=== PATIENT | female | born 1945 | race Caucasian/White ===

== ENCOUNTER → 2016-10-14 | Outpatient (CLI) | payer MEDICARE, BC ==
--- NOTE | 2016-10-16 07:58 | MM ---
Reason for exam: screening (asymptomatic). Last mammogram was performed 1 year and 1 month ago. History: Patient is postmenopausal. Stereotactic core biopsy of the left breast, March 19, 1998. Benign stereotactic core biopsy of the left breast, March 19, 1998. Core biopsy of the left breast. Benign excisional biopsy of the right breast. Took estrogen for 27 years 7 months beginning at age 36. Physical Findings: A clinical breast exam by your physician is recommended on an annual basis and results should be correlated with mammographic findings. MG 3D Screening Mammo W/Cad Bilateral CC and MLO view(s) were taken. Prior study comparison: September 28, 2015, bilateral MG screening mammo w CAD. February 09, 2014, bilateral MG screening mammo w CAD. January 18, 2013, CAD bilateral diagnostic mammogram. There are scattered fibroglandular densities. Previous mammotome biopsy in the left breast. ASSESSMENT: Benign, BI-RAD 2 RECOMMENDATION: Routine screening mammogram of both breasts in 1 year.
== END | disposition home or self-care (01) ==
LOC: RADMAMWWP 08:27
PROVIDERS: ATTEND Family Medicine
DX: Z12.31 Encounter for screening mammogram for malignant neoplasm of breast (principal)
CPT/HCPCS: 77063; G0202

== ENCOUNTER → 2017-10-19 | Outpatient (CLI) | payer MEDICARE, BC ==
--- NOTE | 2017-10-19 15:25 | BD ---
EXAMINATION TYPE: Axial Bone Density DATE OF EXAM: 10/19/2017 CLINICAL HISTORY: 72-year-old female disorder bone density and structure, postmenopausal screening Height: 64.5 Weight: 160 FRAX RISK QUESTIONS: Alcohol (3 or more units per day): no Family History (Parent hip fracture): no Glucocorticoids (More than 3mos): no (Ex: prednisone, prednisolone, methylprednisolone, dexamethasone, and hydrocortisone). History of Fracture in Adulthood: no Secondary Osteoporosis: 1. Type 1 Diabetes: no 2. Hyperthyroidism: no 3. Menopause before 45: hysterectomy age 36 4. Malnutrition: no 5. Chronic liver disease: no Rheumatoid Arthritis: no Current Tobacco Use: no RISK FACTORS HISTORY OF: Family History of Osteoporosis: no Active: yes Diet low in dairy products/other sources of calcium: at least one serving a day, or more Postmenopausal woman: no Take estrogen and/or progesterone medications: not now How long: age [age] Lost more than 2 inches in height since high school: no, but states height may have been about 66 inc hes at one time Frequent falls: no Poor Health: no Hyperparathyroidism: no Adrenal Insufficiency: no MEDICATIONS: Prednisone or other steroids: no Thyroid Medications: yes Which medication: generic synthroid How Long: at least 30 years Osteoporosis Medications: no Additional Medications: calcium & Vitamin D , cholesterol meds Additional History: EXAM MEASUREMENTS: Bone mineral densitometry was performed using the [employer] System. Bone mineral density as measured about the Lumbar spine is: ----- L1-L4(G/cm2): 1.049 T Score Values are as follows: ----- L2: -1.6 ----- L3: -0.8 ----- L4: -0.7 ----- L1-L4: -1.1 Bone mineral density not previously done at this facility; previously done at physician office Bone mineral density about the R hip (g/cm2): 0.838 Bone mineral density about the L hip (g/cm2): 0.874 T Score values are as follows: -----R Neck: -1.4 -----L Neck: -1.2 -----R Total: -1.3 -----L Total: -1.1 Bone mineral density not previously done at this facility; previously done at physician office IMPRESSION: Osteopenia (T Score between -2.5 and -1). There is slightly increased risk of fracture and the patient may be considered for treatment. Re-Screen 2-5 years. NOTE: T-SCORE=SD OF THE YOUNG ADULT MEAN.
== END | disposition home or self-care (01) ==
LOC: RADBDWWP 07:56
PROVIDERS: ATTEND Family Medicine
DX: M85.80 Other specified disorders of bone density and structure, unspecified site (principal)
CPT/HCPCS: 77080

== ENCOUNTER → 2017-11-11 | Outpatient (CLI) | payer MEDICARE, BC ==
--- NOTE | 2017-11-12 07:58 | MM ---
Reason for exam: clinical finding. Last mammogram was performed 1 year and 1 month ago. History: Patient is postmenopausal. Stereotactic core biopsy of the left breast, March 19, 1998. Benign stereotactic core biopsy of the left breast, March 19, 1998. Core biopsy of the left breast. Benign excisional biopsy of the right breast. Took estrogen for 27 years 7 months beginning at age 36. Indicated problem(s): pain in the left breast. Physical Findings: Nurse did not find any significant physical abnormalities on exam. MG 3D Diag Mammo W/Cad [facility] Bilateral CC and MLO view(s) were taken. Prior study comparison: October 14, 2016, bilateral MG 3d screening mammo w/cad. September 28, 2015, bilateral MG screening mammo w CAD. February 09, 2014, bilateral MG screening mammo w CAD. There are scattered fibroglandular densities. Previous mammotome biopsy in the left breast. No significant new findings when compared with previous films. These results were verbally communicated with the patient and result sheet given to the patient on 11/11/17. ASSESSMENT: Negative, BI-RAD 1 RECOMMENDATION: Routine screening mammogram of both breasts in 1 year. Manage patient on a clinical basis. (left breast pain)
== END | disposition home or self-care (01) ==
LOC: RADMAMWWP 14:10
PROVIDERS: ATTEND Family Medicine
DX: N64.4 Mastodynia (principal)
CPT/HCPCS: 77066; G0279; 77062

== ENCOUNTER → 2018-11-18 | Outpatient (CLI) | payer MEDICARE ==
--- NOTE | 2018-11-19 10:53 | MM ---
Reason for exam: screening (asymptomatic). Last mammogram was performed 1 year ago. History: Patient is postmenopausal. Stereotactic core biopsy of the left breast, March 19, 1998. Benign stereotactic core biopsy of the left breast, March 19, 1998. Core biopsy of the left breast. Benign excisional biopsy of the right breast. Took estrogen for 27 years 7 months beginning at age 36. Physical Findings: A clinical breast exam by your physician is recommended on an annual basis and results should be correlated with mammographic findings. MG 3D Screening Mammo W/Cad Bilateral CC and MLO view(s) were taken. Prior study comparison: November 11, 2017, bilateral MG 3d diag mammo w/cad [facility]. October 14, 2016, bilateral MG 3d screening mammo w/cad. There are scattered fibroglandular densities. No significant changes when compared with prior studies. ASSESSMENT: Benign, BI-RAD 2 RECOMMENDATION: Routine screening mammogram of both breasts in 1 year.
== END | disposition home or self-care (01) ==
LOC: RADMAMWWP 14:09
PROVIDERS: ATTEND Family Medicine
DX: Z12.31 Encounter for screening mammogram for malignant neoplasm of breast (principal)
CPT/HCPCS: 77063; 77067

== ENCOUNTER → 2020-10-05 | Outpatient (CLI) | payer MEDICARE ==
--- NOTE | 2020-10-08 08:15 | MM ---
Reason for exam: screening (asymptomatic). Last mammogram was performed 1 year and 11 months ago. History: Patient is postmenopausal. Stereotactic core biopsy of the left breast, March 19, 1998. Benign stereotactic core biopsy of the left breast, March 19, 1998. Core biopsy of the left breast. Benign excisional biopsy of the right breast. Took estrogen for 27 years 7 months beginning at age 36. Physical Findings: A clinical breast exam by your physician is recommended on an annual basis and results should be correlated with mammographic findings. MG 3D Screening Mammo W/Cad Bilateral CC and MLO view(s) were taken. Prior study comparison: November 18, 2018, bilateral MG 3d screening mammo w/cad. November 11, 2017, bilateral MG 3d diag mammo w/cad [facility]. There are scattered fibroglandular densities. There are benign appearing round calcifications bilaterally. Previous mammotome biopsy in the left breast. There is no discrete abnormality. ASSESSMENT: Benign, BI-RAD 2 RECOMMENDATION: Routine screening mammogram of both breasts in 1 year.
== END | disposition home or self-care (01) ==
LOC: RADMAMWWP 08:53
PROVIDERS: ATTEND Family Medicine
DX: Z12.31 Encounter for screening mammogram for malignant neoplasm of breast (principal); Z78.0 Asymptomatic menopausal state
CPT/HCPCS: 77063; 77067

== ENCOUNTER → 2021-02-25 | Outpatient (CLI) | payer MEDICARE ==
--- NOTE | 2021-02-25 15:10 | USB ---
Reason for exam: clinical finding. History: Patient is postmenopausal. Stereotactic core biopsy of the left breast, March 19, 1998. Benign stereotactic core biopsy of the left breast, March 19, 1998. Core biopsy of the left breast. Benign excisional biopsy of the right breast. Took estrogen for 27 years 7 months beginning at age 36. Indicated problem(s): palpable abnormality in the right breast. Physical Findings: Nurse did not find any significant physical abnormalities on exam. US Breast Limited RT Right limited breast ultrasound including focal area of concern, retroareolar and axilla demonstrates no cystic or solid lesion seen. These results were verbally communicated with the patient and result sheet given to the patient on 02/25/21. ASSESSMENT: Negative, BI-RAD 1 RECOMMENDATION: Return to routine screening mammogram schedule for both breasts. Back on schedule for October 2021. Manage patient on a clinical basis.
== END | disposition home or self-care (01) ==
LOC: RADUSWWP 14:18
PROVIDERS: ATTEND Family Medicine
DX: R92.8 Other abnormal and inconclusive findings on diagnostic imaging of breast (principal); Z78.0 Asymptomatic menopausal state

== ENCOUNTER → 2021-08-27 | Outpatient (CLI) | payer MEDICARE ==
--- NOTE | 2021-08-27 22:32 | BD ---
EXAMINATION TYPE: Axial Bone Density DATE OF EXAM: 08/27/2021 COMPARISON: Prior DEXA bone scan October 19, 2017 CLINICAL HISTORY: 76 years year old Female. ICD-10 CODE: Z78.0 Post nicole w/o HRT,N95.1 Post nicole sym ptoms, Height: 64 Weight: 165.9 FRAX RISK QUESTIONS: Alcohol (3 or more units per day): NO Family History (Parent hip fracture): NO Glucocorticoids (More than 3mos): NO History of Fracture in Adulthood: NO Secondary Osteoporosis: 1. Type 1 Diabetes: NO 2. Hyperthyroidism: NO 3. Menopause before 45: YES 4. Malnutrition: NO 5. Chronic liver disease: NO Rheumatoid Arthritis: NO Current Tobacco Use: NO RISK FACTORS HISTORY OF: Hip Fracture (Right/Left): NO Spine Fracture: NO History of Wrist Fracture: NO Surgery to Spine/Hip(right/left)/Wrist (right/left): NO Family History of Osteoporosis: NO Active: YES Diet low in dairy products/other sources of calcium: NO Postmenopausal woman: NO Take estrogen and/or progesterone medications: NONE CURRENTLY How long: AGE [age] Lost more than 2 inches in height since high school: YES Frequent falls: NO Poor Health: Hyperparathyroidism: NO Adrenal Insufficiency: NO MEDICATIONS: Prednisone or other steroids: NO Thyroid Medications:SYNTHROID Which medication: How Long: AGE 37 TIL CURRENT Osteoporosis Medications: CALCIUM How Lon Additional Medications: VIT D Additional History: EXAM MEASUREMENTS: Bone mineral densitometry was performed using the [employer]. Bone mineral density as measured about the Lumbar spine is: ----- L1-L4(G/cm2): 1.028 T Score Values are as follows: ----- L1: -1.6 ----- L2: -1.4 ----- L3: -1.2 ----- L4: -0.9 ----- L1-L4: -1.3 Bone mineral density has: DECREASED -1.9 % since study of: 2017 Bone mineral density about the R hip (g/cm2): 0.814 Bone mineral density about the L hip (g/cm2): 0.862 T Score values are as follows: -----R Neck: -1.6 -----L Neck: -1.3 -----R Total: -1.2 -----L Total: -1.1 Bone mineral density has: DECREASED 2.2 % since study of: 2018 FRAX%s: The graph provided illustrates a 11.3% chance for a major osteoporotic fx and a 2.2% chance f or the hips probability for fx in 10 years time. IMPRESSION: Osteopenia (T Score between -2.5 and -1) remains present. There is slightly increased risk of fracture and the patient may be considered for treatment. Re-Screen 2-5 years. NOTE: T-SCORE=SD OF THE YOUNG ADULT MEAN.
== END | disposition home or self-care (01) ==
LOC: RADBDWWP 09:31
PROVIDERS: ATTEND Family Medicine
DX: M85.89 Other specified disorders of bone density and structure, multiple sites (principal); Z78.0 Asymptomatic menopausal state
CPT/HCPCS: 77080

== ENCOUNTER → 2021-11-05 | Outpatient (CLI) | payer MEDICARE ==
--- NOTE | 2021-11-06 14:23 | MM ---
Reason for Exam: Screening (asymptomatic). Last mammogram was performed 1 year(s) and 1 month(s) ago. Patient History: Menarche at age 14. First Full-Term at age 25. Left ovary removed at age 36. Right ovary removed at age 36. Hysterectomy at age 36. Postmenopausal. Estrogen for 27 years, 7 months, from age 36 until age 63. Core Biopsy on the Left side. Benign Excisional Biopsy on the right side. 03/19/1998, Benign Stereotactic Core Biopsy on the left side. 03/19/1998, Stereotactic Core Biopsy on the Left side. Risk Values: Cindy 5 year model risk: 2.4%. NCI Lifetime model risk: 5.5%. Prior Study Comparison: 11/11/2017 Bilateral Diagnostic Mammogram, [facility]. 11/18/2018 Bilateral Screening Mammogram, [facility]. 10/05/2020 Bilateral Screening Mammogram, [facility]. Tissue Density: There are scattered fibroglandular densities. Findings: Analyzed By CAD. Benign biopsy clip left breast redemonstrated. There is occasional scattered benign-appearing round calcification bilaterally redemonstrated. There is a new 5 mm round circumscribed lesion in the anterior left breast slightly medial upper aspect on MLO 63/75 cc 50/73 approximately 1.5 cm distance from nipple. There is no suspicious group of microcalcifications in either breast. Overall Assessment: Incomplete: need additional imaging evaluation, BI-RAD 0 Management: Diagnostic Breast Ultrasound of the left breast. Targeted ultrasound new area of concern left breast. Electronically signed and approved by: Austin Diaz M.D.
== END | disposition home or self-care (01) ==
LOC: RADMAMWWP 10:30
PROVIDERS: ATTEND Family Medicine
DX: Z12.31 Encounter for screening mammogram for malignant neoplasm of breast (principal); Z78.0 Asymptomatic menopausal state
CPT/HCPCS: 77063; 77067

== ENCOUNTER → 2021-11-08 | Outpatient (CLI) | payer MEDICARE ==
--- NOTE | 2021-11-11 08:00 | USB ---
Reason for Exam: Additional evaluation requested from abnormal screening. Patient History: Menarche at age 14. First Full-Term at age 25. Left ovary removed at age 36. Right ovary removed at age 36. Hysterectomy at age 36. Postmenopausal. Estrogen for 27 years, 7 months, from age 36 until age 63. Core Biopsy on the Left side. Benign Excisional Biopsy on the right side. 03/19/1998, Benign Stereotactic Core Biopsy on the left side. 03/19/1998, Stereotactic Core Biopsy on the Left side. Risk Values: Cindy 5 year model risk: 2.4%. NCI Lifetime model risk: 5.5%. Technique: Method: Targeted. Prior Study Comparison: 11/18/2018 Bilateral Screening Mammogram, [facility]. 10/05/2020 Bilateral Screening Mammogram, [facility]. 11/05/2021 Bilateral MG 3D screening mammo w/cad, [facility]. Findings: The medial section of the breast of the left breast, the axilla of the left breast and the retroareolar of the left breast were scanned. Targeted ultrasound shows 4 x 4 x 3 mm simple appearing thin-walled cyst at the 10 o'clock position zone A felt to correspond to area of concern on recent mammogram. Overall Assessment: Benign, BI-RAD 2 Management: Screening Mammogram of both breasts in 1 year. Back on schedule. Patient told of results at time of dictation. Electronically signed and approved by: Austin Diaz M.D.
== END | disposition home or self-care (01) ==
LOC: RADUSWWP 12:55
PROVIDERS: ATTEND Family Medicine
DX: R92.8 Other abnormal and inconclusive findings on diagnostic imaging of breast (principal); Z78.0 Asymptomatic menopausal state

== ENCOUNTER → 2022-12-31 | Outpatient (CLI) | payer MEDICARE ==
--- NOTE | 2023-01-01 08:18 | MM ---
Reason for Exam: Screening (asymptomatic). Last mammogram was performed 1 year(s) and 1 month(s) ago. Patient History: Menarche at age 14. First Full-Term at age 25. Left ovary removed at age 36. Right ovary removed at age 36. Hysterectomy at age 36. Postmenopausal. Estrogen for 27 years, 7 months, from age 36 until age 63. Core Biopsy on the Left side. Benign Excisional Biopsy on the right side. 03/19/1998, Benign Stereotactic Core Biopsy on the left side. 03/19/1998, Stereotactic Core Biopsy on the Left side. Risk Values: Cindy 5 year model risk: 2.4%. NCI Lifetime model risk: 5.1%. Prior Study Comparison: 11/18/2018 Bilateral Screening Mammogram, [facility]. 10/05/2020 Bilateral Screening Mammogram, [facility]. 11/05/2021 Bilateral MG 3D screening mammo w/cad, [facility]. Tissue Density: There are scattered fibroglandular densities. Findings: Analyzed By CAD. Left breast biopsy clip. There is no suspicious group of microcalcifications or new suspicious mass in either breast. Overall Assessment: Benign, BI-RAD 2 Management: Screening Mammogram of both breasts in [address] [facility] will attempt to contact patient to return for supplemental views and ultrasound if indicated. Patient should continue monthly self-breast exams. A clinical breast exam by your physician is recommended on an annual basis. This exam should not preclude additional follow-up of suspicious palpable abnormalities. Note on Cindy scores and lifetime risk: 1. A Cindy score greater than 3% is considered moderate risk. If this is the case, consider specialist referral to assess eligibility for a risk reducing agent. 2. If overall lifetime risk for the development of breast cancer is 20% or higher, the patient may qualify for future screening with alternating mammogram and breast MRI. Electronically signed and approved by: John Bui DO
== END | disposition home or self-care (01) ==
LOC: RADMAMWWP 11:54
PROVIDERS: ATTEND Family Medicine
DX: Z12.31 Encounter for screening mammogram for malignant neoplasm of breast (principal); Z78.0 Asymptomatic menopausal state
CPT/HCPCS: 77063; 77067

== ENCOUNTER → 2024-01-06 | Outpatient (CLI) | payer MEDICARE ==
--- NOTE | 2024-01-10 11:41 | MM ---
Reason for Exam: Screening (asymptomatic). Last mammogram was performed 1 year(s) and 1 month(s) ago. Patient History: Menarche at age 14. First Full-Term at age 25. Left ovary removed at age 36. Right ovary removed at age 36. Hysterectomy at age 36. Postmenopausal. Estrogen for 27 years, 7 months, from age 36 until age 63. Core Biopsy on the Left side. Benign Excisional Biopsy on the right side. 03/19/1998, Benign Stereotactic Core Biopsy on the left side. 03/19/1998, Stereotactic Core Biopsy on the Left side. Risk Values: Cindy 5 year model risk: 2.4%. NCI Lifetime model risk: 4.8%. Prior Study Comparison: 10/05/2020 Bilateral Screening Mammogram, [facility]. 11/05/2021 Bilateral MG 3D screening mammo w/cad, [facility]. 12/31/2022 Bilateral MG 3D screening mammo w/cad, [facility]. Tissue Density: There are scattered areas of fibroglandular density. Findings: Analyzed By CAD. Right breast: There is no suspicious group of microcalcifications or new suspicious mass. Left breast: There is no suspicious group of microcalcifications or new suspicious mass. Overall Assessment: Negative, BI-RAD 1 Management: Screening Mammogram of both breasts in [address] [facility] will attempt to contact patient to return for supplemental views and ultrasound if indicated. Patient should continue monthly self-breast exams. A clinical breast exam by your physician is recommended on an annual basis. This exam should not preclude additional follow-up of suspicious palpable abnormalities. Note on Cindy scores and lifetime risk: 1. A Cindy score greater than 3% is considered moderate risk. If this is the case, consider specialist referral to assess eligibility for a risk reducing agent. 2. If overall lifetime risk for the development of breast cancer is 20% or higher, the patient may qualify for future screening with alternating mammogram and breast MRI. Electronically signed and approved by: John Bui DO
== END | disposition home or self-care (01) ==
LOC: RADMAMWWP 08:29
PROVIDERS: ATTEND Internal Medicine Geriatric Medicine
DX: Z12.31 Encounter for screening mammogram for malignant neoplasm of breast
CPT/HCPCS: 77063; 77067